=== PATIENT | female | born 1980 | race Caucasian/White ===

== ENCOUNTER 2019-06-21 15:51 | Emergency (ER) | payer OTHER ==
[~2019-06-21] VITALS: Ht 167.6 cm; Wt 63.0 kg
[2019-06-21 16:18] VITALS: BP 135/81
[2019-06-21] MEDS ORDERED: LORAZEPAM 1MG TABLET PO ONE (16:45)
[2019-06-21] MEDS ORDERED: OLANZAPINE 5MG TABLET ODT PO ONE (17:00)
== END 2019-06-21 17:00 | disposition left against medical advice (07) ==
LOC: ER 15:51
DX: R45.851 Suicidal ideations (principal); F17.200 Nicotine dependence, unspecified, uncomplicated; Z88.4 Allergy status to anesthetic agent
CPT/HCPCS: 99283

== ENCOUNTER 2019-06-22 21:57 | Emergency (ER) | payer OTHER ==
[~2019-06-22] VITALS: Ht 170.2 cm; Wt 59.0 kg
[2019-06-22 23:57] LABS: BASOPHILS % 0.7 % (0.0-2.0); EOSINOPHILS % 1.4 % (0.0-5.0); HEMATOCRIT. 39.8 % (36.0-48.0); HEMOGLOBIN. 13.7 g/dL (12.0-16.0); LYMPHOCYTES % 29.1 % (20.0-50.0); MEAN CORPUSCULAR HEMOGLOBIN 30.3 pg (28.0-32.0); MEAN CORPUSCULAR VOLUME 87.9 fL (81.0-99.0); MEAN PLATELET VOLUME 8.4 fl (7.4-10.4); MONOCYTES % 6.9 % (2.0-8.0); NEUTROPHILS % 61.9 % (40.0-76.0); PLATELET 299 x1000/uL (130-400); RED BLOOD CELL COUNT 4.53 mill/uL (4.2-5.4); RED CELL DISTRIBUTION WIDTH 14.9 % (11.6-14.6)
[2019-06-23 00:12] LABS: CHLORIDE 109 mEq/L (98-107)
[2019-06-23 00:15] LABS: ETHANOL BLOOD < 10 mg/dL
[2019-06-23 00:18] LABS: HCG SCREEN NEGATIVE
[2019-06-23 00:47] LABS: CLARITY URINE CLOUDY (CLEAR); COLOR URINE DARK YELLOW (YELLOW); KETONES URINE TRACE (NEGATIVE); LEUKOCYTE ESTERASE URINE NEGATIVE (NEGATIVE); NITRITE URINE NEGATIVE (NEGATIVE); OCCULT BLOOD URINE NEGATIVE (NEGATIVE); PH URINE 5.5 (4.5-8.0); PROTEIN URINE TRACE (NEGATIVE); SPECIFIC GRAVITY URINE 1.028 (1.005-1.030)
[2019-06-23 01:12] LABS: OPIATES URINE SCREEN NEGATIVE (NEGATIVE)
[2019-06-23 01:13] LABS: *BARBITURATES SCREEN URINE NEGATIVE (NEGATIVE); *BENZODIAZEPINES SCREEN URINE NEGATIVE (NEGATIVE); *COCAINE SCREEN URINE NEGATIVE (NEGATIVE); PHENCYCLIDINE URINE SCREEN NEGATIVE (NEGATIVE)
[2019-06-23 01:15] LABS: *AMPHETAMINES SCREEN URINE PRESUMTIVE POSITIVE (NEGATIVE); CANNABINOID URINE SCREEN PRESUMTIVE POSITIVE (NEGATIVE)
[2019-06-23] MEDS ORDERED: LORAZEPAM 1MG TABLET PO ONE (02:45)
[2019-06-24 16:28] LABS: METHADONE URINE SCREEN NEGATIVE (NEGATIVE)
[2019-06-24 18:37] VITALS: BP 117/84
== END 2019-06-24 19:20 ==
LOC: ER 21:57
DX: F23 Brief psychotic disorder (principal); F15.10 Other stimulant abuse, uncomplicated; F32.9 Major depressive disorder, single episode, unspecified; R45.851 Suicidal ideations; Z59.0 Homelessness; Z91.048 Other nonmedicinal substance allergy status
CPT/HCPCS: 36415; 80053; 80320; 84703; 85025; 99285; G0480